=== PATIENT | male | born 1930 | race Caucasian/White ===

== ENCOUNTER 2017-03-12 13:48 | Inpatient (IN) | payer MEDICARE, OTHER ==
[~2017-03-12] VITALS: Ht 172.7 cm; Wt 69.9 kg
[~2017-03-12 13:48] MED LIST: ACETAMINOPHEN-1 EAC1 PO; ALLOPURINOL 10100 M1 PO; ASPIR 8181 MG PO; ASPIRIN325 PO; DEMADEX20 MG PO; FLOMAX0.4 MG PO; HYDRALAZINE 2525 MG PO; IRON325 PO; LIPITOR10 MG PO; LISINOPRIL10 MG PO; PREDNISONE 10 M10 MG PO; PRILOSEC OTC20 MG PO; SANDIMMUNE25 MG PO; TUMS PO; ZANTAC 150MG T150 MG PO
[2017-03-12 13:56] VITALS: BP 125/61
[2017-03-12] MEDS ORDERED: PREDNISONE 10 M10 MG PO (14:05)
[2017-03-12 14:30] LABS: ABSOLUTE EOSINOPHILS 0.2 thou/uL (0.0-0.7); ABSOLUTE LYMPHOCYTES 1.5 thou/uL (0.8-5.3); ABSOLUTE MONOCYTES 0.7 thou/uL (0.0-1.2); ABSOLUTE NEUTROPHILS 4.2 thou/uL (1.6-8.1); BASOPHILS 0.6 %; EOSINOPHILS 3.4 %; HEMOGLOBIN 10.1 gm/dL (14.0-18.0); LYMPHOCYTES 22.1 %; MCH 28.6 pg (26.0-34.0); MCHC 32.5 g/dL (28.0-37.0); MCV 87.9 fL (80.0-100.0); MONOCYTES 10.3 %; MPV 7.5 fl. (7.2-11.1); NUCLEATED RBCS 0 /100WBC; PLATELET COUNT* 208 thou/uL (150-400); POLYS 63.6 %; RBC 3.53 mil/uL (4.50-6.00); RDW-CV 16.5 % (10.5-14.5); WBC 6.6 thou/uL (4.0-11.0)
[2017-03-12 14:37] LABS: INR 1.2; PROTIME 11.3 Seconds (9.20-11.50)
[2017-03-12 14:38] LABS: ANION GAP 6 mmol/L (7-16); BUN 54 mg/dL (7-18); CALCIUM 9.3 mg/dL (8.5-10.1); CHLORIDE 105 mmol/L (98-107); CO2 30 mmol/L (21-32); GLUCOSE 133 mg/dL (70-99); POTASSIUM 4.5 mmol/L (3.5-5.1); SODIUM 141 mmol/L (136-145)
[2017-03-12 14:49] LABS: ALBUMIN 3.5 g/dL (3.4-5.0); ALKALINE PHOSPHATASE 62 U/L (46-116); LIPASE 148 U/L (73-393); NT-PRO BRAIN NAT PEPTIDE 25661 pg/mL (<300); SGOT 19 U/L (15-37); SGPT 18 U/L (30-65); TOTAL BILIRUBIN 0.9 mg/dL (<0.1-1.0); TOTAL PROTEIN 6.7 g/dL (6.4-8.2)
[2017-03-12 15:02] LABS: TROPONIN-I LEVEL <0.06 ng/mL (<0.06)
[2017-03-12 18:14] VITALS: BP 111/53
[2017-03-12 18:15] VITALS: BP 126/58
--- NOTE | 2017-03-12 19:02 | NUR ---
PATIENT PRESENTED TO 229 PER CART THIS EVENING WITH A HX OF SOA X 2 TO 3 DAYS. PATIENT IS ALERT AND ORIENTED X 4. HE WAS PLACED ON TELE MONITOR. DIET ORDERED AND PATIENT WAS ORIENTED TO ROOM AND PROCEDURES. FALL CONTRACT SIGNED. PATIENT PLACED ON 02 AT 2 LITERS. WILL REPORT TO DOWEL STICKER OPERATOR.
[2017-03-12 20:00] VITALS: BP 123/55
[2017-03-13] VITALS: BP 116/45
[2017-03-13 04:00] VITALS: BP 115/53
--- NOTE | 2017-03-13 05:42 | NUR ---
PATIENT SLOWLY PROGRESSING TOWARDS GOALS. V-PACED, ORIENT X4, HARD OF HEARING. 2L NC. 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 HE DID NOT BRING HIS MEDICAITON FROM HOME. STATED HIS SON IN LAW WILL BE BRINGING HIS MEDS FROM HOME. PT USES URNAL TOLERATES WELL. SPOKE WITH HIS DAUGHTER CATALINA ABOUT PT CONDITION HAS ASKED TO BE NOTIFIED FOR ANY ACUTE CHANGES OR QUESTIONS WE HAVE REGARDING PT. PATIENT IS SLEEPING VOICED NO FURTHER CONCERNS AT THIS MOMENT. WILL CONTINUE TO MONITOR CLOSELY.
[2017-03-13 08:00] VITALS: BP 129/56
[2017-03-13 12:00] VITALS: BP 125/55
--- NOTE | 2017-03-13 13:56 | NUR ---
ASSUMED CARE OF PATIENT THIS AM AT 0730. PATIENT IS ALERT AND ORIENTED X 4. HE WAS ANXIOUS AND CONCERNED ABOUT GETTING STARTED ON HIS HOME MEDICATIONS. DR PRATT NOTIFIED AND MEDICATIONS ORDERED. HOME MEDICATION ALSO OKAYED BY DR. CHAVEZ IN TO SEE PATIENT THIS AM AND ORDERS WERE WRITTEN FOR PO LASIX. MEDICATION WAS GIVEN THIS AM BUT PATIENT DID NOT RESPOND WITH URINE OUTPUT. DR PRATT CALLED FOR A CARDIOLOGY CONSULT ORDER. DR GRIDER IN TO SEE PATIENT AND IV LASIX ORDERED. PATIENT STARTED ON IV LASIX THIS AFTERNOON. PATIENT IS TAKING HIS DIET WELL. TELE SHOWS V PACED RHYTHM WITH UNDERLYING AFIB. NO C/O CHEST PAIN. WILL CONTINUE TO MONITOR.
--- NOTE | 2017-03-13 15:58 | EKG ---
[place] [address] ELECTROCARDIOGRAM REPORT Name: OLEG BANKS Room: [address] ADM IN .R.#: [id number] Admission: 03/12/17 Attend Phys: Jayjay Geiger, Discharge: Date of : 30 Report #: [id number] THIS REPORT FOR: //name// [facility] ED Test Date: 2017-03-12 Test Time: 14:00:03 Pat Name: OLEG BANKS Department: Room: [facility] Gender: M Controlled Atmospheric Furnace Brazer: MANAN : 1930 Requested By: Karlos Corona Order Number: [id number] MD: Harley Crump Measurements Intervals [place] Rate: 64 P: 0 NC: 68 QRS: -61 QRSD: 202 T: 110 QT: 479 QTc: 495 Interpretive Statements Ventricular-paced complexes No further analysis attempted due to paced rhythm Baseline wander in lead(s) V6 Compared to ECG 10/19/2015 07:49:42 No significant changes Electronically Signed On 03-13-2017 15:58:03 FOOD PRODUCTION SUPERVISOR by Harley Crump [email or web address] <ELECTRONICALLY SIGNED> By: Jung Crump MD, [facility] 03/13/17 1558 1400 1400 Jung Crump MD, [facility] /EPI
[2017-03-13 16:00] VITALS: BP 133/56
[2017-03-13 20:00] VITALS: BP 126/58
[2017-03-14] VITALS: BP 119/41
[2017-03-14 04:00] VITALS: BP 96/39
--- NOTE | 2017-03-14 04:46 | NUR ---
PT A/OX4, O2 VIA NC, PACED ON THE MONITOR, UP SBA TO USE URINAL, STEADY, FREE FROM SOA/PAIN, MEDS/ASSESSMENT PER CHARTING, HOURLY ROUNDING IN PLACE, FALL PRECAUTIONS IN PLACE, PT USING CALL LIGHT AND ABLE TO REPORT NEEDS, VSS WITH 0400 BP SOFT IN 90'S/30'S WITH PT ASYMPTOMATIC, OUTPUT MEASURED VIA URINAL WITH 700 CC LIGHT YELLOW URINE THUS FAR, WILL CONT TO MONITOR.
[2017-03-14 05:09] LABS: HEMATOCRIT 26.9 % (42.0-52.0); MCH 28.8 pg (26.0-34.0); MCHC 33.3 g/dL (28.0-37.0); MCV 86.7 fL (80.0-100.0); MPV 7.9 fl. (7.2-11.1); RBC 3.1 mil/uL (4.50-6.00); RDW-CV 16.2 % (10.5-14.5); WBC 6.5 thou/uL (4.0-11.0)
[2017-03-14 06:25] LABS: CALCIUM 9.2 mg/dL (8.5-10.1); CREATININE 2.9 mg/dL (0.6-1.3); MAGNESIUM 1.9 mg/dL (1.8-2.4); POTASSIUM 3.8 mmol/L (3.5-5.1)
[2017-03-14 08:21] VITALS: BP 109/47
--- NOTE | 2017-03-14 08:21 | NUR ---
PT 100% ON 2L NC. PT TITRATED TO ROOM AIR. SATTING 96% ON ROOM AIR.
[2017-03-14 12:23] VITALS: BP 123/48
--- NOTE | 2017-03-14 15:00 | NUR ---
INITIAL ASSESSMENT: Pt evaluated for d/c planning needs. Reviewed chart and spoke with nurse and pt. Pt is alert and oriented. Pt states he lives alone in apartment and was independent with ADL's prior to admission. Pt said his girlfriend lives down the [address] from him. Pt said he is still driving. Pt uses walker for ambulation. Pt has had [facility] in the past. Will remain available to assist as needed.
[2017-03-14 16:00] VITALS: BP 130/58
--- NOTE | 2017-03-14 17:06 | 2DMMODE ---
[place] [address] 2 D/M-MODE ECHOCARDIOGRAM Name: OLEG BANKS Room: [address] IN [facility]#: [id number] Admission: 03/12/17 Attend Phys: Jayjay Mccall Discharge: Date of : 30 Date of Service: 03/14/17 1706 Report #: [id number] THIS REPORT FOR: //name// APPROVED REPORT Study performed: 03/14/2017 13:53:39 EXAM: Comprehensive 2D, Doppler, and color-flow Echocardiogram Patient Location: In-Patient Room #: 229 Status: routine BSA: 1.86 HR: 70 bpm BP: 109/47 mmHg Rhythm: NSR Other Information Study Quality: Good Indications Congestive Heart Failure Dyspnea 2D Dimensions LVEF(%): 40.32 (>50%) IVSd: 14.61 (7-11mm) LVOT Diam: 24.04 (18-24mm) LVDd: 65.10 mm PWd: 14.88 (7-11mm) Ascending Ao: 44.13 (22-36mm) LVDs: 51.98 (25-40mm) Aortic Root: 39.96 mm Vazquez's LVEF: 40.32 % Volumes Left Atrial Volume (Systole) LA ESV Index: 64.90 mL/m2 Aortic Valve AoV Peak Vamshi.: 1.69 m/s AO Peak Gr.: 11.38 mmHg LVOT Max P.73 mmHg AO Mean Gr.: 5.90 mmHg LVOT Mean P.27 mmHg LVOT Max V: 1.30 m/s AO V2 VTI: 27.90 cm LVOT Mean V: 0.83 m/s SHAMIKA (VTI): 4.20 cm2 LVOT V1 VTI: 25.82 cm AI Taylor: 3.38 m/s2 AI PHT: 283.88 [place] [address] 2 D/M-MODE ECHOCARDIOGRAM Name: OLEG BANKS Room: [address] IN .R.#: [id number] Admission: 03/12/17 Attend Phys: Jayjay Mccall Discharge: Date of : 30 Date of Service: 03/14/17 1706 Report #: [id number] Mitral Valve MV Decel. Time: 181.19 ms MV PHT: 52.55 ms MVA (PHT): 4.19 cm2 TDI Medial E' Vamshi.: 0.06 m/s Lateral E' Vamshi.: 0.12 m/s Pulmonary Valve PV Peak Vamshi.: 0.95 m/s PV Peak Gr.: 3.64 mmHg Tricuspid Valve TR Peak Gr.: 38.25 mmHg RVSP: 43.00 mmHg Left Ventricle Left ventricle is moderately dilated. There is global hypokinesis of LV wall motion There is normal left ventricular wall thickness. Left ventricular ejection fraction is severely decreased. LVEF is 25%. The left ventricular diastolic function is normal. Right Ventricle The right ventricle is normal size. The right ventricular systolic function is normal. Pacemaker lead is present in the right ventricle. Atria Left atrium is moderately dilated. Right atrium is mild to moderately dilated. Aortic Valve Mild aortic valve sclerosis. Moderate aortic regurgitation. There is no aortic valvular stenosis. Mitral Valve There is mitral annular calcification. Trace mitral regurgitation. No evidence of mitral valve stenosis. Tricuspid Valve The tricuspid valve is normal in structure. Trace tricuspid regurgitation. The RVSP is 40-45 mmHg. Pulmonic Valve The pulmonary valve is normal in structure. Mild [place] [address] 2 D/M-MODE ECHOCARDIOGRAM Name: OLEG BANKS Room: [address] IN [facility]#: [id number] Admission: 03/12/17 Attend Phys: Jayjay Mccall Discharge: Date of : 30 Date of Service: 03/14/17 1706 Report #: [id number] Great Vessels The aortic root is normal in size. IVC is normal in size and collapses with >50% inspiration Pericardium There is no pericardial effusion. <Conclusion> Left ventricle is moderately dilated. There is normal left ventricular wall thickness. Left ventricular ejection fraction is severely decreased. LVEF is 25%. The right ventricle is normal size. Left atrium is moderately dilated. Mild aortic valve sclerosis. Moderate aortic regurgitation. There is no aortic valvular stenosis. The tricuspid valve is normal in structure. Trace tricuspid regurgitation. The RVSP is 40-45 mmHg. IVC is normal in size and collapses with >50% inspiration There is no pericardial effusion. There is global hypokinesis ogf LV wall motion <ELECTRONICALLY SIGNED> By: Wliliam Morrell MD, FACC 03/14/171705 05 05 William Morrell MD, FACC /INF
--- NOTE | 2017-03-14 19:06 | NUR ---
PT ON 2L NC PRN. PT FORGETFUL. VOIDING PER URINAL.
[2017-03-14 20:00] VITALS: BP 120/49
[2017-03-15] VITALS: BP 111/40
[2017-03-15 03:03] LABS: INFLUENZA A ANTIGEN None Detected (None Detect); INFLUENZA B ANTIGEN None Detected (None Detect)
--- NOTE | 2017-03-15 03:30 | NUR ---
PT A/OX4, FORGETFUL AT TIMES, DIFFICULT TIME WITH CONVERSTAIONS AT TIMES DUE TO PT WILL CHANGE SUBJECT A LOT, 2L NC, PACE MAKER NOTED, VSS, UP WITH SBA TO BSC/STANDS FOR URINAL, VOIDING WELL, MEDS/ASSESSMENT PER CHARTING, HOULRY ROUNDING IN PLACE, FALL PRECAUTIONS IN PLACE WITH CALL LIGHT IN REACH, PT FREE FROM SOA/PAIN, WILL CONT TO MONITOR.
[2017-03-15 04:00] VITALS: BP 107/48
[2017-03-15 05:46] LABS: CALCIUM 9.3 mg/dL (8.5-10.1); CREATININE 3.3 mg/dL (0.6-1.3); MAGNESIUM 2.1 mg/dL (1.8-2.4); POTASSIUM 4.7 mmol/L (3.5-5.1)
--- NOTE | 2017-03-15 07:15 | NUR ---
CHANGE OF SHIFT REPORT GIVEN ASSUMED PATIENT CARE PATIENT SEEN AT BEDSIDE ASLEEP
[2017-03-15 08:00] VITALS: BP 126/52
[2017-03-15 11:59] VITALS: BP 125/55
--- NOTE | 2017-03-15 15:01 | CON ---
[address] [address] CONSULTATION Name: OLEG BANKS Room: [address] IN M.R.#: [id number] Admission: 03/12/17 Attend Phys: Jayjay Geiger, Discharge: Date of : 30 Report #: [id number] THIS REPORT FOR: //name// CC: Teagan Geiger HISTORY OF PRESENT ILLNESS: I was asked by Dr. Geiger to see this 86-year-old white male in cardiology consultation for evaluation and treatment of an elevated BNP. This man has had increasing shortness of breath for approximately 3 weeks. He does have a history of congestive heart failure in the past and he presented to the Emergency Room at [facility] with a chest x-ray consistent with congestive heart failure with cardiomegaly and bilateral pulmonary edema. As best I can tell at one time recently, he was in fact taking torsemide 20 mg a day; however, it is reported by the ER that that medication had been stopped as had his hydralazine. He was on lisinopril 10 mg daily; however, but not on a beta-claudia. He had an echocardiogram done in 03/2015, which showed left ventricular ejection fraction of 40%-45%. He is in chronic atrial fibrillation and diastolic function could not be assessed. He does have a history of mitral valve repair. He had mild aortic regurgitation, mild mitral regurgitation, trivial pulmonic regurgitation and mild tricuspid regurgitation. Pulmonary pressure is estimated to be 31 mmHg. He had global hypokinesis. I do not find another echo recently. He has not had any chest pain or angina. Other issues include hypertension, hyperlipidemia, sick sinus syndrome. He is status post pacemaker. He has had a mitral valve repair, something like 19 years ago. He had a renal transplant for polycystic kidney disease, something like 29 years ago. He is followed by Dr. Cortes. He does have a history of GI bleeds on Coumadin and is therefore not taking Coumadin. He is a very poor historian. PAST MEDICAL HISTORY: Essentially as described above. HOME MEDICATIONS: According to the ER note include prednisone 10 mg daily, Flomax 0.4 mg daily, calcium carbonate 750 mg t.i.d., cyclosporine 50 mg b.i.d., lisinopril 10 mg daily, ranitidine 150 mg b.i.d., allopurinol 100 mg daily. Previously, he had been on torsemide 20 mg daily, atorvastatin 10 mg daily, hydralazine 25 mg b.i.d., omeprazole 20 mg daily, codeine, APAP and ferrous sulfate those have all been stopped. ALLERGIES: HE IS ALLERGIC TO SULFA. FAMILY HISTORY: [place] to be not pertinent. He cannot remember his family history. SOCIAL HISTORY: He does live in an extended care facility. I do not believe that it is a care home, however. He does not smoke, drink [place] [address] CONSULTATION Name: OLEG BANKS Room: [address] IN .R.#: [id number] Admission: 03/12/17 Attend Phys: Jayjay Geiger, Discharge: Date of : 30 Report #: [id number] REVIEW OF SYSTEMS: Detailed in the Emergency Room note and additionally is as follows: Positive for cough and shortness of breath, dyspnea on exertion, some orthopnea, no PND, no edema. He does have a history of heart murmur. Additionally, he has been constipated. He does have the above-mentioned medical allergies; otherwise, his review of systems is negative for some 40 different complaints in 14 different system categories including central nervous system, general, respiratory, cardiovascular, endocrine, gastrointestinal, genitourinary, hematologic, lymphatic, allergic, immunologic, psychiatric, musculoskeletal, skin, eyes, ears, nose and throat. Please see our review of system form for details and negatives in review of systems. PHYSICAL EXAMINATION: GENERAL: He presents as a well-developed, well-nourished, elderly white male in no acute distress. VITAL SIGNS: Pulse was 72 and irregular, blood pressure is 115/53, respirations were 18 and regular, temperature is 98.6. HEENT: Head is atraumatic. Eyes clear. NECK: Supple. There is no jugular venous distention or hepatojugular reflux. Thyroid is not enlarged. There is no adenopathy. SKIN: Warm and dry. MOUTH: Mucous membranes are moist. LUNGS: Clear to auscultation and percussion. HEART: Revealed normal first and second heart sound. There is no S4, no S3. No murmurs, rubs, thrills, heaves or gallops. PMI is nondisplaced. The rhythm is irregularly irregular, rate is approximately 70. PMI is not displaced. ABDOMEN: Soft, flat, nontender, no palpable masses, no organomegaly. EXTREMITIES: Reveal no cyanosis or clubbing, but perhaps a trace of edema. NEUROLOGIC: The patient did not mentate normally. He was clearly a little confused. He did talk normally moved all extremities normally. LABORATORY DATA: His chest x-ray is read as described above with cardiomegaly and bilateral pulmonary edema. EKG demonstrates a ventricular paced rhythm. The NT-proBNP was 25,661. Troponins were negative x 3. Creatinine was 3.0 and his estimated GFR was 20. IMPRESSION: 1. Acute on chronic systolic congestive heart failure. 2. Chronic atrial fibrillation. 3. Hypertension. 4. Hyperlipidemia. 5. Sick sinus syndrome. 6. Status post pacemaker. 7. Status post mitral valve repair. 8. Status post renal transplant. 9. Chronic kidney disease. 10. [place] [address] CONSULTATION Name: BANKSOLEG R Room: [address] IN [facility]#: [id number] Admission: 03/12/17 Attend Phys: Jayjay Geiger, Discharge: Date of : 30 Report #: [id number] 11. History of gastrointestinal bleeds. RECOMMENDATION: At this point, I would just diurese him. If he can be gotten back on a low dose of beta claudia and possibly low dose of hydralazine and isosorbide, he might do better in the long run. At this point, we see he simply needs diuresing. I believe his BUN and creatinine will come down with diuresis. Thank you very much for asking me to see the patient. If there are any questions, please feel free to contact me. <ELECTRONICALLY SIGNED> By: Jung Crump MD, [facility] 03/15/17 1501 [id number]. Harley Crump MD, [facility] /nt
[2017-03-15 15:47] VITALS: BP 118/47
--- NOTE | 2017-03-15 17:28 | NUR ---
PATIENT SITTING UP IN BED AND WATCHING TV REMAINS A AND O X 4, FORGETFUL, KLAMATH AFIB WITH BBB, V PACED AT TIMES-RATE 70S-80S LUNGS COARSE/DIM 02 2L NC O2 SATS MID 90S ULTRASOUND SPEC COUGH GOOD APPETITE LAST BM UNKNOWN GOOD UO, 800CC YELLOW IN COLOR SEEN AND RECORDED UNRECORDED UO IN TOILET PATIENT UP 1 ASSIST TO BATHROOM REF SCDS IV 20 GA R FA SL CALL LIGHT IN REACH AND INSTRUCTION GIVEN AND FOLLOWEDE BED ALARM ON ABN LABS MONITORED BUN 64, CR 3.3 PA/LAT CXR COMPLETED TODAY IV
[2017-03-15 20:00] VITALS: BP 124/53
[2017-03-16] VITALS: BP 105/48
--- NOTE | 2017-03-16 00:07 | NUR ---
PT A/OX4 FORGETFUL, PACEMAKER, BBB ON THE MONITOR, 2L NC, UP SBA TO BSC, FREE FROM PAIN, REPORTS FEELING BETTER, MEDS/ASSESSMENT PER CHARTING, HOURLY ROUNDING IN PLACE, FALL PRECAUTIONS IN PLACE, PT ABLE TO USE CALL LIGHT TO MAKE NEEDS KNOWN, VSS, WILL CONT TO MONITOR.
[2017-03-16 04:03] VITALS: BP 113/39
--- NOTE | 2017-03-16 05:18 | NUR ---
EPISODE OF 16 BEAT VTACH, PT ASYMPTOMATIC, SLEEPING AT THIS TIME, WILL CONT TO MONITOR.
[2017-03-16 08:00] VITALS: BP 131/56
--- NOTE | 2017-03-16 08:00 | NUR ---
CHANGE OF SHIFT, BEDSIDE REPORT GIVEN ASSUMED PATIENT CARE PATIENT SEEN AT BEDSIDE, ASLEEP
--- NOTE | 2017-03-16 10:24 | NUR ---
CONTINUE TO FOLLOW, DISCUSSED WITH NURSE AND MET WITH PT. HE STATES HE HOPES TO GO HOME SOON. HE STATES HE HAS A CANE, WLAKER, 3 TOMLIN AND POWER CHAIR. HE HAS SEVERAL SUPPORTIVE NEIGHBORS AND 2 DTRS. HE DOESN'T WEAR O2 AT HOME. HE HAS HAD [facility] IN THE PAST AND WANTS TO USE THEM AGAIN. DR MERRITT MADE AWARE. WILL FOLLOW
[2017-03-16 10:57] LABS: CALCIUM 9.3 mg/dL (8.5-10.1); CREATININE 3.4 mg/dL (0.6-1.3); MAGNESIUM 1.9 mg/dL (1.8-2.4); POTASSIUM 3.8 mmol/L (3.5-5.1)
[2017-03-16 12:00] VITALS: BP 121/42
[2017-03-16 15:43] VITALS: BP 125/56
[2017-03-16] MEDS ORDERED: LASIX 80 MG TAB80 MG PO (16:17)
--- NOTE | 2017-03-16 18:06 | NUR ---
PATIENT DCD TO HOME WITH H/H IV AND HEART MONITOR REMOVED PERSONAL BELONGINGS RETURNED DC INSTRUCTIONS GIVEN TO PATIENT AND FAMILY MEMBER AND SIGNED COPIES GIVEN ASSISTED OUT VIA WC GOOD CONDITION TO WAITNG CAR
--- NOTE | 2017-03-21 16:21 | CON ---
[address] [address] CONSULTATION Name: OLEG BANKS Room: [address] IN M.R.#: [id number] Admission: 03/12/17 Attend Phys: Jayjay Geiger, Discharge: 03/16/17 Date of : 30 Report #: [id number] THIS REPORT FOR: //name// CC: Teagan Geiger Consultation obtained with Dr. Geiger for acute kidney injury on chronic kidney disease and renal transplant. HISTORY OF PRESENT ILLNESS: The patient is 86 years old. He has a history of a kidney transplant, donor, 1988, for polycystic kidney disease. He follows Dr. Cortes. His immunosuppression is prednisone 10 mg per day and cyclosporine 50 mg twice daily. His baseline creatinine from my assessment of hospital labs seems to be between 2.5-2.8 consistent with stage 4 chronic kidney disease. 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 He was admitted this time with the chief complaint of worsening shortness of breath over the past 2 weeks. He denies any fevers. The shortness of breath is exertional. He denies any chest pain. He has not noticed any significant worsening lower extremity edema than usual. He tells me on his recent labs, his potassium level was high, but now it is back to baseline. He denies any significant productive cough, etc. PAST MEDICAL HISTORY: History of kidney transplant in 1988 for polycystic kidney disease, history of hypertension, atrial fibrillation, DVT with the Daphnie filter placement, history of hernia, history of skin cancer and history of cerebral aneurysm. HOME MEDICATIONS: Prednisone 10 mg per day, Flomax, calcium carbonate, cyclosporine 50 b.i.d., lisinopril 10 mg per day, ranitidine 150 mg b.i.d., allopurinol 100 mg per day, torsemide 20 mg per day, hydralazine 25 mg p.o. b.i.d., omeprazole, ferrous sulfate and Lipitor. ALLERGIES: HE IS ALLERGIC TO SULFA DRUGS. PERSONAL, SOCIAL AND FAMILY HISTORY: No smoking or alcohol reported. REVIEW OF SYSTEMS: He feels he is slightly improved since last night since he had a dose of Lasix. No chest pain, no fever, no cough, no phlegm overnight. PHYSICAL EXAMINATION: VITAL SIGNS: On my examination this morning, blood pressure is 115/53. His pulse rate is 72. Temp is 36.3. GENERAL: He is awake. He is alert. Answers questions appropriately, though he is fairly tangential in his discussion and takes a moment to give a direct answer to any question. He is on 2 liters nasal cannula. LUNGS: Diminished bilaterally with coarse rhonchi at bases bilaterally. I do not see any [place] [address] CONSULTATION Name: OLEG BANKS Room: [address]#: [id number] Admission: 03/12/17 Attend Phys: Jayjay Geiger, Discharge: 03/16/17 Date of : 30 Report #: [id number] ABDOMEN: Soft and nontender. He has regular S1 and S2. LABORATORIES: Show white count of 6.6; hemoglobin is 10.1 and platelets 208,000. Sodium is 141, potassium is 4.5, chloride 105 and bicarbonate is 30. BUN is 54 and creatinine is 3. Calcium is 9.3. AST 19 and ALT 18. BNP is 25,000. Albumin 3.5. Lipase is 148. His GFR is close to 20 based on the creatinine now. His chest x-ray from yesterday shows cardiomegaly with bilateral pulmonary opacities, likely pulmonary edema, though multifocal pneumonia has also not been ruled out. ASSESSMENT: 1. The patient is an 86 years old and status post kidney transplant from 1988. 2. Chronic kidney disease stage 4. 3[address] Cortes. 4. Hypertension. 5. Cardiomegaly. 6. 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 7. Dyslipidemia. 8. Chronic use of diuretics. PLAN: 1. The patient got one dose of Lasix in the ER yesterday. We can give the patient Lasix 40 mg p.o. twice daily over the next day or two; however, I would limit the use of DMITRI inhibitor at the same time. We will give the patient DuoNebs on a q. 6 hour basis. 2. Check the patient for flu also. 3. Continue with present immunosuppression. 4. We will follow up with the renal function and electrolytes in the morning. Thank you for allowing us to be part of care of the patient. We will continue to follow and provide necessary support. <ELECTRONICALLY SIGNED> By: Vel Farris MD 03/21/17 1621 0833 1923Suzanne Richey MD /nt
== END 2017-03-16 18:00 | disposition home health service (06) | DRG 291 ==
LOC: M.ERS 13:48 → M.TBA-ER 15:31 → M.2W 15:31
PROVIDERS: Emergency Medicine; Internal Medicine; Internal Medicine Nephrology; ADMIT Family Medicine
PROC: B24BZZ4 Ultrasonography of Heart with Aorta, Transesophageal (ICD-10-PCS; principal; 2017-03-14)
DX: I13.0 Hypertensive heart and chronic kidney disease with heart failure and stage 1 through stage 4 chronic kidney disease, or unspecified chronic kidney disease (principal); I50.23 Acute on chronic systolic (congestive) heart failure; J96.01 Acute respiratory failure with hypoxia; J18.9 Pneumonia, unspecified organism; Z94.0 Kidney transplant status; N18.4 Chronic kidney disease, stage 4 (severe); N17.9 Acute kidney failure, unspecified; E78.5 Hyperlipidemia, unspecified; I49.5 Sick sinus syndrome; I27.20 Pulmonary hypertension, unspecified; N28.1 Cyst of kidney, acquired; I48.2 Chronic atrial fibrillation; Z95.0 Presence of cardiac pacemaker; Z85.828 Personal history of other malignant neoplasm of skin; Z79.52 Long term (current) use of systemic steroids; Z79.899 Other long term (current) drug therapy; Z88.2 Allergy status to sulfonamides

== ENCOUNTER 2017-04-11 14:29 | Inpatient (IN) | payer MEDICARE, OTHER ==
[~2017-04-11] VITALS: Wt 71.7 kg
[~2017-04-11 14:29] MED LIST changes: +LASIX 80 MG TAB80 MG PO
[2017-04-11 14:34] VITALS: BP 112/51
[2017-04-11] MEDS ORDERED: PREDNISONE 10 M10 MG PO (14:39)
[2017-04-11] MEDS ORDERED: ZANTAC 150MG T150 MG PO (14:39)
[2017-04-11] MEDS ORDERED: DEMADEX20 MG PO (14:40)
[2017-04-11] MEDS ORDERED: LISINOPRIL10 MG PO (14:40)
[2017-04-11] MEDS ORDERED: LIPITOR10 MG PO (14:40)
[2017-04-11] MEDS ORDERED: CYCLOSPORINE25 M1 PO (14:51)
[2017-04-11] MEDS ORDERED: CARVEDILOL3.125 MG PO (14:52)
[2017-04-11 14:57] LABS: ABSOLUTE BASOPHILS 0.1 thou/uL (0.0-0.2); ABSOLUTE EOSINOPHILS 0.2 thou/uL (0.0-0.7); ABSOLUTE LYMPHOCYTES 0.8 thou/uL (0.8-5.3); ABSOLUTE MONOCYTES 0.4 thou/uL (0.0-1.2); ABSOLUTE NEUTROPHILS 5.7 thou/uL (1.6-8.1); BASOPHILS 0.8 %; EOSINOPHILS 2.4 %; HEMATOCRIT 30.2 % (42.0-52.0); HEMOGLOBIN 9.7 gm/dL (14.0-18.0); LYMPHOCYTES 11.2 %; MCH 27.2 pg (26.0-34.0); MCHC 32.2 g/dL (28.0-37.0); MCV 84.5 fL (80.0-100.0); MONOCYTES 5.7 %; MPV 7.3 fl. (7.2-11.1); NUCLEATED RBCS 0 /100WBC; PLATELET COUNT* 190 thou/uL (150-400); POLYS 79.9 %; RBC 3.57 mil/uL (4.50-6.00); RDW-CV 16.5 % (10.5-14.5); WBC 7.2 thou/uL (4.0-11.0)
[2017-04-11 15:10] LABS: ANION GAP 10 mmol/L (7-16); APTT 27.5 Seconds (25.0-31.3); BUN 80 mg/dL (7-18); CALCIUM 9.2 mg/dL (8.5-10.1); CHLORIDE 102 mmol/L (98-107); CO2 30 mmol/L (21-32); CREATININE 3.2 mg/dL (0.6-1.3); GLUCOSE 120 mg/dL (70-99); INR 1.2; POTASSIUM 4.2 mmol/L (3.5-5.1); SODIUM 142 mmol/L (136-145)
[2017-04-11 15:14] LABS: ALBUMIN 3.3 g/dL (3.4-5.0); ALKALINE PHOSPHATASE 59 U/L (46-116); LIPASE 171 U/L (73-393); SGOT 20 U/L (15-37); SGPT 18 U/L (30-65); TOTAL BILIRUBIN 0.8 mg/dL (<0.1-1.0); TOTAL PROTEIN 6.5 g/dL (6.4-8.2); TROPONIN-I LEVEL <0.06 ng/mL (<0.06)
[2017-04-11 17:32] LABS: URINE BILIRUBIN NEGATIVE (Negative); URINE BLOOD NEGATIVE (Negative); URINE CLARITY CLEAR; URINE COLOR YELLOW; URINE GLUCOSE-RANDOM NEGATIVE (Negative); URINE KETONES NEGATIVE (Negative); URINE LEUKOCYTES-REFLEX NEGATIVE (Negative); URINE NITRITE-REFLEX NEGATIVE (Negative); URINE PROTEIN NEGATIVE (Negative); URINE UROBILINOGEN 0.2 E.U./dl (0.2-1.0)
[2017-04-11 20:12] VITALS: BP 114/46
[2017-04-11 21:51] VITALS: BP 113/47
[2017-04-12 00:30] VITALS: BP 112/51; BP 118/54; BP 127/50
[2017-04-12 04:30] VITALS: BP 112/47
[2017-04-12 05:37] LABS: ABSOLUTE LYMPHOCYTES 1.1 thou/uL (0.8-5.3); ABSOLUTE MONOCYTES 0.6 thou/uL (0.0-1.2); BASOPHILS 0.7 %; EOSINOPHILS 0.8 %; HEMATOCRIT 27.2 % (42.0-52.0); LYMPHOCYTES 18.5 %; MCH 27.2 pg (26.0-34.0); MCHC 32.9 g/dL (28.0-37.0); MCV 82.8 fL (80.0-100.0); MONOCYTES 10.5 %; MPV 7.7 fl. (7.2-11.1); NUCLEATED RBCS 0 /100WBC; PLATELET COUNT* 184 thou/uL (150-400); POLYS 69.5 %; RBC 3.29 mil/uL (4.50-6.00); RDW-CV 16.4 % (10.5-14.5); WBC 5.7 thou/uL (4.0-11.0)
[2017-04-12 06:04] LABS: ANION GAP 6 mmol/L (7-16); BUN 84 mg/dL (7-18); CALCIUM 9.2 mg/dL (8.5-10.1); CHLORIDE 102 mmol/L (98-107); CO2 31 mmol/L (21-32); CREATININE 3.2 mg/dL (0.6-1.3); GLUCOSE 103 mg/dL (70-99); SODIUM 139 mmol/L (136-145); TROPONIN-I LEVEL <0.06 ng/mL (<0.06)
[2017-04-12 08:30] VITALS: BP 120/62
[2017-04-12 11:30] VITALS: BP 103/43
[2017-04-12 15:30] VITALS: BP 110/56
[2017-04-12 19:30] VITALS: BP 105/52
[2017-04-13] VITALS (7 sets, daily range): BP systolic 96–119; BP diastolic 41–57
[2017-04-13 05:27] LABS: ABSOLUTE EOSINOPHILS 0.2 thou/uL (0.0-0.7); ABSOLUTE LYMPHOCYTES 1.7 thou/uL (0.8-5.3); ABSOLUTE MONOCYTES 0.8 thou/uL (0.0-1.2); ABSOLUTE NEUTROPHILS 4.1 thou/uL (1.6-8.1); BASOPHILS 0.3 %; EOSINOPHILS 3.6 %; HEMOGLOBIN 9.4 gm/dL (14.0-18.0); LYMPHOCYTES 24.6 %; MCH 26.8 pg (26.0-34.0); MCHC 32.3 g/dL (28.0-37.0); MCV 82.8 fL (80.0-100.0); MONOCYTES 11.4 %; MPV 7.5 fl. (7.2-11.1); NUCLEATED RBCS 0 /100WBC; PLATELET COUNT* 206 thou/uL (150-400); POLYS 60.1 %; RDW-CV 16.7 % (10.5-14.5); WBC 6.7 thou/uL (4.0-11.0)
[2017-04-13 06:04] LABS: ALBUMIN 3.2 g/dL (3.4-5.0); CALCIUM 9.1 mg/dL (8.5-10.1); CREATININE 3.2 mg/dL (0.6-1.3); POTASSIUM 4.1 mmol/L (3.5-5.1); TOTAL BILIRUBIN 0.9 mg/dL (<0.1-1.0); TOTAL PROTEIN 6.2 g/dL (6.4-8.2)
--- NOTE | 2017-04-13 06:14 | EKG ---
[place] [address] ELECTROCARDIOGRAM REPORT Name: BANKSOLEG R Room: [address] ADM IN .R.#: [id number] Admission: 04/11/17 Attend Phys: Doug Lockhart MD Discharge: Date of : 30 Report #: [id number] THIS REPORT FOR: //name// [facility] ED Test Date: 2017-04-11 Test Time: 16:53:19 Pat Name: OLEG BANSK Department: Room: [facility] Gender: Reference Librarian: Gregorio DUPONT : 1930 Requested By: Juan Goldstein Order Number: [id number] MD: Perez Truong Measurements Intervals [place] Rate: 66 P: 0 HI: 177 QRS: -64 QRSD: 204 T: 120 QT: 468 QTc: 491 Interpretive Statements Ventricular-paced complexes No further analysis attempted due to paced rhythm Compared to ECG 03/12/2017 14:00:03 No significant changes Electronically Signed On 04-13-2017 6:14:23 DEALMAKER by Perez Truong [email or web address] <ELECTRONICALLY SIGNED> By: Perez Truong MD, FACC 04/13/17 0614 1653 1653 Perez Truong MD, FAC /EPI
[2017-04-13 06:23] LABS: % SATURATION 7 % (20-39); IRON 21 ug/dL (50-175)
[2017-04-14] VITALS: BP 123/61
[2017-04-14 04:00] VITALS: BP 121/63
[2017-04-14 05:39] LABS: CALCIUM 8.6 mg/dL (8.5-10.1); CREATININE 3.2 mg/dL (0.6-1.3); POTASSIUM 4.2 mmol/L (3.5-5.1)
[2017-04-14 08:00] VITALS: BP 113/51
--- NOTE | 2017-04-14 17:18 | EKG ---
[place] [address] ELECTROCARDIOGRAM REPORT Name: OLEG BANKS Room: [address] ADM IN M.R.#: [id number] Admission: 04/11/17 Attend Phys: Doug Lockhart MD Discharge: Date of : 30 Report #: [id number] THIS REPORT FOR: //name// [facility] Test Date: 2017-04-14 Test Time: 11:36:36 Pat Name: OLEG BANKS Department: Room: [address] Gender: M Combining Machine Operator: PADMA : 1930 Requested By: Tea Case Order Number: [id number] Reading MD: Perez Truong Measurements Intervals [place] Rate: 63 P: 0 FL: 81 QRS: -65 QRSD: 220 T: 107 QT: 509 QTc: 522 Interpretive Statements Ventricular-paced complexes No further rhythm analysis attempted due to paced rhythm Left bundle branch block Compared to ECG 04/11/2017 16:53:19 Left bundle-branch block now present Electronically Signed On 04-14-2017 17:18:41 INSPECTION SUPERVISOR by Perez Truong [email or web address] <ELECTRONICALLY SIGNED> By: Perez Truong MD, FACC 04/14/17 1718 1136 1136 Perez Truong MD, FAC /EPI
--- NOTE | 2017-04-14 17:49 | CARDNUC ---
[place] [address] CARDIAC NUCLEAR IMAGING REPORT Name: OLEG BANKS Room: [address] IN [facility]#: [id number] Admission: 04/11/17 Attend Phys: Doug Lockhart, Discharge: Date of : 30 Date of Service: 04/14/17 1749 Report #: [id number] THIS REPORT FOR: //name// APPROVED REPORT Exam: Nuclear Stress Test Indication: Dyspnea Patient Location: In-Patient Room #: 214 Stress Tech: Olimpia Roland Stress Nurse: Jessica Jean RN NM Tech:COLLIN Gonzalez Ht: 5 ft 6 in Wt: 154 lbs BSA: 1.79 m2 BMI: 24.85 Medical History Medical History: a fib, mitral valve repair, pacemaker, chf, 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 Reason for pharmacologic stress test: physical limitation. HR Resting HR: 67 bpm Max Heart Rate (APMHR): 134 bpm Max HR Achieved: 71 bpm Target HR (85% APMHR): 113 bpm % of APMHR: 52 Recovery HR: 64 bpm BP Resting BP: 131/91 mmHg Max BP: 116/71 mmHg ECG Resting ECG: Ventricular [place] [address] CARDIAC NUCLEAR IMAGING REPORT Name: OLEG BANKS Room: [address]#: [id number] Admission: 04/11/17 Attend Phys: Doug Lockhart, Discharge: Date of : 30 Date of Service: 04/14/17 1749 Report #: [id number] Stress ECG: Ventricular paced rhythm ST Change: None Arrhythmia: None Recovery ECG: Ventricular paced rhythm Recovery ST Change: None Recovery Arrhythmia: None Clinical Reason for Termination: Completed protocol Stress Symptoms: none Exercise duration: 0 min sec Exercise capacity: 1 METs Functional Aerobic Impairment 53% The patient tolerated Lexiscan infusion without significant symptoms. Nurse Comments pt tolerated well Stress ECG Conclusion The baseline 12-lead elect cardiac exam showed ventricular pacing. EKGs obtained during and post Lexiscan infusion showed ventricular pacing. NM EXAM: Myocardial Perfusion REST/STRESS Imaging Protocol: Rest Tc-99m/Stress Tc-99m 1 day Resting Data Rest SPECT myocardial perfusion imaging was performed in supine position 30 minutes following the intravenous injection of 11.3 mCi of Tc-99m Sestamibi. Time of rest injection: 0955 Time of rest imagin The images were gated to evaluate regional wall motion and calculate left ventricular ejection fraction. Administration Route: IV Pharmacologic Stress Pharmacologic stress test was performed by injecting Regadenoson 0.4 mg IV push followed by the intravenous injection of 34.3 mCi of Tc-99m Sestamibi. Time of stress injection: 1120 Time of stress imagin Administration Route: IV Gated Stress SPECT was performed 40 minutes [place] [address] CARDIAC NUCLEAR IMAGING REPORT Name: OLEG BANKS Room: [address] IN [facility]#: [id number] Admission: 04/11/17 Attend Phys: Doug Lockhart, Discharge: Date of : 30 Date of Service: 04/14/17 1749 Report #: [id number] The images were gated to evaluate regional wall motion and calculate left ventricular ejection fraction. Stress only was performed in the Supine position. Study Quality Study: Good Artifact: No artifact Study Data At rest, the left ventricular ejection fraction was 21%.. Post stress, the left ventricular ejection was 25%.. TID = 0.98. Perfusion Myocardial perfusion images obtained at rest and post Lexiscan stress show a large in size severe intensity defect involving the entire inferior wall consistent with prior infarct. No other significant fixed or reversible defects are identified. Wall Motion There is severe global hypokinesis. The inferior wall is severely hypokinetic. The apex is akinetic. The left ventricle is dilated at both rest and post Lexiscan stress. Nuclear Conclusion ECG Findings: non-diagnostic Clinical Findings: negative for ischemia Nuclear Findings: negative for ischemia Exercise Capacity: not assessed Left Ventricular Function: abnormal Risk Study: moderate Perfusion images show a large fixed defect of the inferior wall consistent with prior inferior wall infarction. There was no evidence of stress-induced ischemia. Left ventricular systolic function is severely decreased. The left ventricle is dilated. These findings are consistent with an ischemic cardiomyopathy. This study is at least moderate risk due to underlying left ventricular systolic dysfunction. <Conclusion> The baseline 12-lead elect cardiac exam [place] [address] CARDIAC NUCLEAR IMAGING REPORT Name: OLEG BANKS Room: [address]#: [id number] Admission: 04/11/17 Attend Phys: Doug Lockhart, Discharge: Date of : 30 Date of Service: 04/14/171748 Report #: [id number] EKGs obtained during and post Lexiscan infusion showed ventricular pacing. <ELECTRONICALLY SIGNED> By: Perez Truong MD, [facility] 04/14/171748 48 1749 Perez Truong MD, FACC /INF
[2017-04-14 20:00] VITALS: BP 105/55
[2017-04-15 00:44] VITALS: BP 110/52
[2017-04-15 04:00] VITALS: BP 115/58
[2017-04-15 05:35] LABS: CALCIUM 8.5 mg/dL (8.5-10.1); CREATININE 3.7 mg/dL (0.6-1.3)
[2017-04-15 07:43] VITALS: BP 108/54; BP 180/54
[2017-04-15 08:00] VITALS: BP 108/54
[2017-04-15 20:00] VITALS: BP 98/60
--- NOTE | 2017-04-15 20:18 | EKG ---
[place] [address] ELECTROCARDIOGRAM REPORT Name: OLEG BANKS Room: [address] ADM IN M.R.#: [id number] Admission: 04/11/17 Attend Phys: Doug Lockhart MD Discharge: Date of : 30 Report #: [id number] THIS REPORT FOR: //name// [facility] Test Date: 2017-04-15 Test Time: 08:47:54 Pat Name: OLEG BANKS Department: Room: [address] Gender: M Network Engineering Advisor: 27 : 1930 Requested By: Tea Case Order Number: [id number] Reading MD: Perez Truong Measurements Intervals [place] Rate: 111 P: 0 ND: 104 QRS: -65 QRSD: 245 T: QT: QTc: 0 Interpretive Statements A-V dual-paced complexes w/ some inhibition No further analysis attempted due to paced rhythm Compared to ECG 04/14/2017 11:36:36 Left bundle-branch block no longer present Electronically Signed On 04-15-2017 20:18:31 [employer] MACHINE OPERATOR by Perez Truong [email or web address] <ELECTRONICALLY SIGNED> By: Perez Truong MD, FACC 04/15/172017 0847 0847 Perez Truong MD, FAC /EPI
[2017-04-16] VITALS: BP 112/55
[2017-04-16 04:00] VITALS: BP 112/53
[2017-04-16 05:28] LABS: ABSOLUTE LYMPHOCYTES 1.1 thou/uL (0.8-5.3); ABSOLUTE MONOCYTES 0.7 thou/uL (0.0-1.2); BASOPHILS 0.2 %; EOSINOPHILS 0.4 %; HEMATOCRIT 27.6 % (42.0-52.0); HEMOGLOBIN 8.9 gm/dL (14.0-18.0); LYMPHOCYTES 15.7 %; MCH 26.5 pg (26.0-34.0); MCHC 32.1 g/dL (28.0-37.0); MCV 82.6 fL (80.0-100.0); MONOCYTES 10.3 %; NUCLEATED RBCS 0 /100WBC; PLATELET COUNT* 195 thou/uL (150-400); POLYS 73.4 %; RBC 3.34 mil/uL (4.50-6.00); RDW-CV 16.5 % (10.5-14.5); WBC 6.8 thou/uL (4.0-11.0)
[2017-04-16 05:57] LABS: ALBUMIN 3.2 g/dL (3.4-5.0); CALCIUM 8.3 mg/dL (8.5-10.1); CREATININE 4.3 mg/dL (0.6-1.3); POTASSIUM 4.9 mmol/L (3.5-5.1); TOTAL PROTEIN 5.8 g/dL (6.4-8.2)
[2017-04-16 08:15] VITALS: BP 106/50
[2017-04-16 14:15] VITALS: BP 103/49
[2017-04-16 15:06] LABS: CALCIUM 8.3 mg/dL (8.5-10.1); CREATININE 4.6 mg/dL (0.6-1.3); POTASSIUM 4.9 mmol/L (3.5-5.1)
[2017-04-16 16:00] VITALS: BP 115/61
--- NOTE | 2017-04-19 12:38 | CON ---
[address] [address] CONSULTATION Name: OLEG BANKS Room: [address] IN M.R.#: [id number] Admission: 04/11/17 Attend Phys: Doug Lockhart MD Discharge: 04/16/17 Date of : 30 Report #: [id number] THIS REPORT FOR: //name// CC: Doug Jensen DATE OF SERVICE: 04/12/2017 NEPHROLOGY CONSULTATION CHIEF COMPLAINT: Syncopal episode. REASON FOR NEPHROLOGY CONSULTATION: Chronic kidney disease stage 4. HISTORY OF PRESENT ILLNESS: This is an 86-year-old male who has past medical history of kidney transplant from a donor in 1988 for polycystic kidney disease, now has CKD stage 4, follows with Dr. Cortes. He is on prednisone 10 mg a day and cyclosporine 50 mg twice a day. His baseline creatinine is 2.9 to 3. He came in with a history of passing out episodes. His creatinine is at 3.2, which is close to his baseline. His BNP is more than 35,000. Chest x-ray does not reveal florid pulmonary edema. His breathing is currently stable. He has been started on IV diuretics. He is also on lisinopril 10 mg a day at home. REVIEW OF SYSTEMS: The patient is complaining of passing out. Otherwise, 10-point review of systems is negative. PAST MEDICAL HISTORY: Includes history of kidney transplant in 1988 for polycystic kidney disease, history of hypertension, atrial fibrillation, DVT with [place] filter placement, history of hernia, history of skin cancer and history of cerebral aneurysm. HOME MEDICATIONS: Reviewed. ALLERGIES: Reviewed. FAMILY HISTORY: Noncontributory. INPATIENT MEDICATIONS: Reviewed. SOCIAL HISTORY: No smoking, alcohol or illicit drug use. PHYSICAL EXAMINATION: VITAL SIGNS: Blood pressure is 112/47, respiratory rate 16, pulse rate of 69 and temperature 36.5. GENERAL: He is awake, alert, oriented x 3, [place] [address] CONSULTATION Name: OLEG BANKS Room: [address] IN ..#: [id number] Admission: 04/11/17 Attend Phys: Doug Lockhart MD Discharge: 04/16/17 Date of : 30 Report #: [id number] HEAD, EYES, EARS, NOSE AND THROAT: Mucous membranes are very dry. NECK: No JVD. CHEST: Bilaterally diminished breath sounds. No crackles heard. CARDIOVASCULAR: S1, S2 normal. No murmurs. ABDOMEN: Obese umbilical hernia and slightly distended; otherwise, it is nontender. EXTREMITIES: He has no lower extremity edema and symmetrical extremities. NEUROLOGIC: Gross neurological function seems to be intact. PSYCHIATRIC: Mood and affect is normal. LABORATORY DATA: Hemoglobin is 9.0 and platelet count is 184,000. Potassium is 4.0, BUN is 84, creatinine is 3.2 and sodium is 139. Other labs are reviewed. IMAGING: Chest x-ray, nuclear med scan and head CT reports were reviewed. ASSESSMENT: 1. Chronic kidney disease stage 4, status post kidney transplant. 2. Syncope. 3. Anemia of chronic kidney disease. 4. Hypertension. PLAN: The patient's baseline creatinine is 2.9 to 3. I would say that his creatinine is very close to his baseline. Although his BNP is high, clinically he does not look too much volume overloaded. We can try IV Lasix for one more day and then switch it to p.o. Lasix again tomorrow. Refrain from using any DMITRI inhibitor or ARB. I have stopped the lisinopril for now. Strict I's and O's and I have also ordered iron parameters to check for his anemia. Blood pressure is currently controlled. Thank you for this consultation and we will continue to follow him. <ELECTRONICALLY SIGNED> By: Selin Bustos MD 04/19/17 1238 0927 [id number] Bustos MD /nt
--- NOTE | 2017-04-21 11:51 | CON ---
[address] [address] CONSULTATION Name: OLEG BANKS Room: [address] IN M.R.#: [id number] Admission: 04/11/17 Attend Phys: Doug Lockhart MD Discharge: 04/16/17 Date of : 30 Report #: [id number] THIS REPORT FOR: //name// CC: Doug Jensen DATE OF SERVICE: 04/12/2017 HISTORY OF PRESENT ILLNESS: This is an 86-year-old male patient who was evaluated by me to determine any neurological etiology for the patient's syncope like episode. The patient is very hard of hearing. Presently, he is not very happy because he did not get any food this morning because of cardiology procedures. He indicates that he had at least 2 episodes where he passed out. He did not have any associated seizure activity. There was no focal neurological deficit associated with it. They come spontaneously. He denies any prior history of stroke. REVIEW OF SYSTEMS: Positive for multiple cardiac problem. He has a history of atrial fibrillation. He has a history of bradycardia and DVT. He had the syncope. He denies any prior history of stroke. He is very hard of hearing, but that is his baseline. He had a kidney transplant in the past. He had some valve repair done in the past. Record indicates that he has a history of cerebral aneurysm, he does not know anything about that. Review of systems indicate that he has been admitted to this hospital with chest pain and congestion. He has a history of a Daph[place] filter. Record also indicate that he had some surgery for a brain aneurysm, but I do not know whether that was open surgery or intervention. History is very difficult to get from him because he is a poor historian. He is very hard of hearing and he is very irritable because he did not get anything to eat, but I did carry out the 14-point review of system in this patient, he has this cardiac issues, but he does not have any new eye, respiratory, GI, , musculoskeletal, constitutional, dermatological, hematological, psychiatric, throat, endocrine or allergic symptom associated with present symptomatology. PAST MEDICAL HISTORY: Negative for stroke according to him. FAMILY HISTORY: Negative for early age stroke. SOCIAL HISTORY: He does not smoke or drink any alcohol. PHYSICAL EXAMINATION: The patient's examinations indicate he is alert. He is responsive. His speech looks okay. I cannot check the memory or fund of knowledge because he is not able to hear well and . Cranial nerve examination 2-12 is mostly unremarkable. His strength, sensation, reflexes and tone looks symmetrical. There is no meningeal sign. There is no carotid bruit in this patient. I could not have a very good look [place] [address] CONSULTATION Name: OLEG BANKS Room: [address] IN R#: [id number] Admission: 04/11/17 Attend Phys: Doug Lockhart MD Discharge: 04/16/17 Date of : 30 Report #: [id number] He looks a reasonably well-developed individual who does not have any dysmorphic features of eyes, ears and face. His vision looks adequate, but he has significant problem with hearing. His pulses are somewhat difficult to feel, but he has no edema, cyanosis or jaundice. Cardiac examinations indicate that he has a history of atrial fibrillation as well as some valve repair. Respiratory examination does not appear to be showing any respiratory difficulty or rhonchi. His blood pressure is 112/47, respiration is 16, pulse is 69, and temperature is 97.7. LABORATORY DATA: He did have a CT scan of the head on admission that was reviewed and that looks unremarkable. His blood workup indicated that his sodium is normal, but his creatinine is 3.2 and BUN is 84. IMPRESSION: Clinically, it is unlikely that this patient has any neurological etiology for his symptoms. His workup is somewhat difficult because I do not know if he had any intervention done in the brain for his aneurysm, which will constitute a contraindication to do the MRI. He does not provide that history either. Therefore, we will avoid MRI at the moment and just look at the other workup. I will check a carotid Doppler and an EEG in this patient and we will see what the cardiology workup shows and see if they determine any etiology for the patient's episodes of syncope. I discussed all of it with the patient and we will check on him tomorrow to see what the cardiology workup showed and then decide about further workup. Thank you very much for this referral. <ELECTRONICALLY SIGNED> By: Eric Bee MD 04/21/17 1151 0917 [id number] Bee MD /nt
== END 2017-04-16 17:45 | disposition short-term general hospital (02) | DRG 698 ==
LOC: M.ERS 14:29 → M.2W 17:55 → M.TBA-ER 17:55 → M.2W 20:01
PROVIDERS: Emergency Medicine Emergency Medical Services; Internal Medicine; ADMIT Internal Medicine
DX: T86.11 Kidney transplant rejection (principal); I50.23 Acute on chronic systolic (congestive) heart failure; I47.2 Ventricular tachycardia; I13.0 Hypertensive heart and chronic kidney disease with heart failure and stage 1 through stage 4 chronic kidney disease, or unspecified chronic kidney disease; N18.4 Chronic kidney disease, stage 4 (severe); N17.9 Acute kidney failure, unspecified; E87.1 Hypo-osmolality and hyponatremia; Q61.3 Polycystic kidney, unspecified; I42.9 Cardiomyopathy, unspecified; Z94.0 Kidney transplant status; E78.5 Hyperlipidemia, unspecified; D63.1 Anemia in chronic kidney disease; I48.2 Chronic atrial fibrillation; I49.5 Sick sinus syndrome; Z86.718 Personal history of other venous thrombosis and embolism; Z85.828 Personal history of other malignant neoplasm of skin; Z79.82 Long term (current) use of aspirin; Z88.2 Allergy status to sulfonamides; Z95.0 Presence of cardiac pacemaker